=== PATIENT | female | born 1980 | race Two or more races ===

== ENCOUNTER 2024-03-28 10:47 | Inpatient (IN) | payer SELFPAY ==
[~2024-03-28] VITALS: Ht 165.1 cm; Wt 93.0 kg
[2024-03-28 11:49] LABS: Urine Bacteria FEW /hpf (None Seen); Urine Blood 3+ /uL (Negative); Urine Clarity Turbid (Clear); Urine Mucus FEW (None Seen); Urine Protein, UAD TRACE (Negative); Urine Specific Gravity 1.015 (1.001-1.035); Urine Urobilinogen Normal (Negative); Urine WBC 9 /hpf (0 - 5); Urine pH 5.5 (5.0-9.0)
[2024-03-28 11:50] LABS: Urine Color Yellow (Yellow)
[2024-03-28 12:08] LABS: Alanine Aminotransferase 17 U/L (7-40); Alkaline Phosphatase 93 U/L (46-116); Anion Gap 7 (5-15); Aspartate Aminotransferase 16 U/L (13-40); Calcium 9.7 mg/dL (8.7-10.4); Carbon Dioxide 22 mmol/L (20-30); Chloride 106 mmol/L (98-107); Glucose 94 mg/dL (74-106); Lipase 36 U/L (12-53); Potassium 3.9 mmol/L (3.5-5.1); Sodium 135 mmol/L (136-145)
[2024-03-28 12:09] LABS: Albumin 4.4 g/dL (3.2-4.8); Bilirubin, Total 1.3 mg/dL (0.2-1.0); Total Protein 7.9 g/dL (5.7-8.2)
[2024-03-28 12:11] LABS: Basophils # (auto) 0 10 ^3/uL (0-0.2); Basophils % (auto) 0.2 % (0.0-2.0); Eosinophils # (auto) 0.1 10 ^3/uL (0-0.8); Eosinophils % (auto) 0.6 % (0.0-7.0); Hematocrit 40.7 % (36.0-46.0); Hemoglobin 13.4 g/dL (12.2-16.2); Lymphocytes # (auto) 1.9 10 ^3/uL (0.4-5.4); Lymphocytes % (auto) 10.8 % (10.0-50.0); Mean Corpuscular Hemoglobin 29.8 pg (28.0-32.0); Mean Corpuscular Volume 90.5 fL (80.0-100.0); Monocytes # (auto) 1.6 10 ^3/uL (0-1.3); Monocytes % (auto) 8.6 % (0.0-12.0); Neutrophils # (auto) 14.5 10 ^3/uL (1.6-8.6); Neutrophils % (auto) 79.8 % (37.0-80.0); Red Cell Distribution Width 12.6 % (11.8-14.3); White Blood Cell 18.1 10^3/uL (4.4-10.8)
[2024-03-28 12:26] LABS: BUN/Creatinine Ratio 8.9 (10.0-20.0); Blood Urea Nitrogen < 5 mg/dL (9-23)
[2024-03-28] MEDS: PIPERACILLIN-TAZOB 3.375GM 100 ML IV ONE (13:05)
[2024-03-28] MEDS: metroNIDAZOLE 500MG/100ML 100 ML IV ONE (13:05)
[2024-03-28] MEDS: SODIUM CHLORIDE 0.9% 1,000 ML IV ONE ×2 (13:06→15:31)
[2024-03-28 13:50] VITALS: PULSE 84; RESP 23; O2SAT 100
[2024-03-28] MEDS: MORPHINE SULFATE 4 MG/ML SYR/VIAL IV ONE (13:51)
[2024-03-28] MEDS: ONDANSETRON HCL 4 MG/2 ML VIAL IV ONE (13:51)
[2024-03-28 14:44] LABS: INR 1.08 (0.9-1.15); Prothrombin Time 11.4 sec (9.3-11.8)
[2024-03-28 15:02] LABS: Lactic Acid w/Reflex 2.2 mmol/L (0.4-2.0)
[2024-03-28] MEDS ORDERED: ACETAMINOPHEN 500 MG TAB PO PRN (15:30)
[2024-03-28] MEDS ORDERED: LIDOCAINE 1% HCL (LOCAL ANESTH.) INJ 20ML MDV ONE (17:12)
[2024-03-28] MEDS ORDERED: ROCURONIUM 10MG/ML 10ML VIAL IV ONE (17:26)
[2024-03-28] MEDS ORDERED: SUCCINYLCHOLINE CHLORIDE 20 MG/ML 10ML VIAL IV ONE (17:26)
[2024-03-28] MEDS ORDERED: LIDOCAINE 1% INJ PF 5ML AMP ONE (17:28)
[2024-03-28] MEDS ORDERED: ONDANSETRON HCL 4 MG/2 ML VIAL ONE (17:28)
[2024-03-28] MEDS ORDERED: PROPOFOL 10 MG/ML 20 ML IV ONE (17:28)
[2024-03-28] MEDS ORDERED: MIDAZOLAM HCL 2MG/2ML 2ml VIAL (1mg/ml) ONE (17:28)
[2024-03-28] MEDS ORDERED: SODIUM CHLORIDE LOCK 10 ML ONE (17:28)
[2024-03-28] MEDS ORDERED: NEOSTIGMINE 1 MG/ML INJ (10mg/10ML VIAL) ONE (17:28)
[2024-03-28] MEDS ORDERED: fentaNYL CITRATE 100 MCG/2 ML VL ONE ×2 (17:28→19:55)
[2024-03-28] MEDS ORDERED: KETAMINE 50mg/ML 1ml syringe ONE (17:28)
[2024-03-28] MEDS ORDERED: MEPERIDINE HCL (50 MG/ML) 1 ML VIAL ONE ×2 (17:28→19:17)
[2024-03-28] MEDS ORDERED: LIDOCAINE HCL 2% TOP JELLY 5ML TOP ONE (17:28)
[2024-03-28] MEDS ORDERED: GLYCOPYRROLATE 0.2 MG/ML 1ML VIAL ONE (17:28)
[2024-03-28] MEDS ORDERED: METOCLOPRAMIDE HCL 5MG/ml INJ 2ml VIAL IV ONE (17:45)
[2024-03-28] MEDS ORDERED: HYDROmorphone HCL 2 MG/ML VL/or syr IV PRN (17:45)
[2024-03-28 18:20] VITALS: PULSE 86; RESP 20; O2SAT 99
[2024-03-28] MEDS ORDERED: ceFAZolin 2 GM/D5W50ml 50 ML IV ONE (18:33)
[2024-03-28] MEDS ORDERED: ceFAZolin 1GM VL ONE (19:53)
[2024-03-28 20:00] VITALS: BP 116/57; PULSE 70; RESP 18; TEMP 98.7; O2SAT 96
[2024-03-28 20:28] VITALS: PULSE 75; RESP 14; O2SAT 100
[2024-03-28 20:45] VITALS: PULSE 68; RESP 21; O2SAT 98
[2024-03-28] MEDS: KETOROLAC TROMETH 30 MG/ML 1ML VIAL IV ONE (20:47)
[2024-03-28] MEDS ORDERED: HYDROmorphone HCL 2 MG/ML VL/or syr ONE (20:48)
[2024-03-28] MEDS: HYDROmorphone HCL 2 MG/ML VL/or syr IV PRN (20:50)
[2024-03-28] MEDS: MORPHINE SULFATE INJ 2 MG/ml SYRG IV PRN (21:08)
[2024-03-28] MEDS: SODIUM CHLORIDE 0.9% 1,000 ML IV SCH (21:30)
[2024-03-28] MEDS: cefTRIAXone 1GM/50ML D5W 50 ML IV SCH (21:30)
[2024-03-28 21:36] VITALS: BP 116/57; PULSE 70; RESP 18; TEMP 98.7; O2SAT 96
[2024-03-28] MEDS: metroNIDAZOLE 500MG/100ML 100 ML IV SCH (22:00)
[2024-03-29 01:00] VITALS: BP 106/56; PULSE 71; RESP 16; TEMP 98.2; O2SAT 98
[2024-03-29] MEDS: MORPHINE SULFATE INJ 2 MG/ml SYRG IV PRN (04:39)
[2024-03-29 04:46] VITALS: BP 120/65; PULSE 74; RESP 18; TEMP 98.8; O2SAT 98
[2024-03-29] MEDS: ONDANSETRON HCL 4 MG/2 ML VIAL IV PRN (06:09)
[2024-03-29 08:34] VITALS: BP 123/64; PULSE 78; RESP 16; TEMP 99.2; O2SAT 98
[2024-03-29] MEDS: PANTOPRAZOLE 40 MG/10 ML VIAL INJ IV SCH (09:25)
[2024-03-29] MEDS: MORPHINE SULFATE INJ 2 MG/ml SYRG IV ONE (09:27)
[2024-03-29 09:55] LABS: Basophils # (auto) 0 10 ^3/uL (0-0.2); Basophils % (auto) 0.1 % (0.0-2.0); Eosinophils # (auto) 0 10 ^3/uL (0-0.8); Hematocrit 36.5 % (36.0-46.0); Hemoglobin 11.9 g/dL (12.2-16.2); Lymphocytes # (auto) 0.5 10 ^3/uL (0.4-5.4); Lymphocytes % (auto) 3.8 % (10.0-50.0); Mean Corpuscular Hemoglobin 29.5 pg (28.0-32.0); Mean Corpuscular Hgb Conc. 32.7 g/dL (32.0-36.0); Mean Corpuscular Volume 90.2 fL (80.0-100.0); Monocytes # (auto) 1.1 10 ^3/uL (0-1.3); Monocytes % (auto) 8.2 % (0.0-12.0); Neutrophils # (auto) 11.4 10 ^3/uL (1.6-8.6); Neutrophils % (auto) 87.9 % (37.0-80.0); Nucleated Red Blood Cells % 0.1 %; Red Blood Cells 4.05 10^6/uL (4.0-5.20); Red Cell Distribution Width 12.6 % (11.8-14.3)
[2024-03-29 09:58] LABS: Anion Gap 8 (5-15); Carbon Dioxide 20 mmol/L (20-30); Chloride 111 mmol/L (98-107); Potassium 3.7 mmol/L (3.5-5.1); Sodium 139 mmol/L (136-145)
[2024-03-29 09:59] LABS: Calcium 8.4 mg/dL (8.5-10.1)
[2024-03-29 10:03] LABS: Glucose 135 mg/dL (74-106)
[2024-03-29 10:04] LABS: BUN/Creatinine Ratio 9.4 (10.0-20.0); Blood Urea Nitrogen 5 mg/dL (9-23)
[2024-03-29 12:45] VITALS: BP 120/71; PULSE 82; RESP 18; TEMP 98.9; O2SAT 99
[2024-03-29] MEDS: D5W/ SOD CHL 0.9%/KCL 20MEQ 1,000 ML IV SCH (16:24)
[2024-03-29 16:49] VITALS: BP 120/58; PULSE 75; RESP 18; TEMP 99.1; O2SAT 99
[2024-03-29 21:00] VITALS: BP 125/53; PULSE 85; RESP 17; TEMP 99.6; O2SAT 95
[2024-03-30 01:00] VITALS: BP 121/58; PULSE 62; RESP 16; TEMP 98.8; O2SAT 99
[2024-03-30 04:52] VITALS: BP 122/62; PULSE 79; RESP 18; TEMP 98.8; O2SAT 100
[2024-03-30 05:33] LABS: Basophils # (auto) 0 10 ^3/uL (0-0.2); Basophils % (auto) 0.4 % (0.0-2.0); Eosinophils # (auto) 0.1 10 ^3/uL (0-0.8); Eosinophils % (auto) 0.9 % (0.0-7.0); Hematocrit 33.4 % (36.0-46.0); Hemoglobin 11.1 g/dL (12.2-16.2); Lymphocytes # (auto) 1.1 10 ^3/uL (0.4-5.4); Lymphocytes % (auto) 11.7 % (10.0-50.0); Mean Corpuscular Hgb Conc. 33.3 g/dL (32.0-36.0); Mean Corpuscular Volume 90.2 fL (80.0-100.0); Monocytes # (auto) 1.3 10 ^3/uL (0-1.3); Monocytes % (auto) 13.3 % (0.0-12.0); Neutrophils # (auto) 7.1 10 ^3/uL (1.6-8.6); Neutrophils % (auto) 73.7 % (37.0-80.0); Red Cell Distribution Width 12.5 % (11.8-14.3); White Blood Cell 9.6 10^3/uL (4.4-10.8)
[2024-03-30 05:47] LABS: Chloride 112 mmol/L (98-107); Potassium 3.6 mmol/L (3.5-5.1); Sodium 141 mmol/L (136-145)
[2024-03-30 05:48] LABS: Anion Gap 6 (5-15); Carbon Dioxide 23 mmol/L (20-30)
[2024-03-30 05:49] LABS: Calcium 8.5 mg/dL (8.5-10.1)
[2024-03-30 05:53] LABS: Glucose 130 mg/dL (74-106)
[2024-03-30 05:54] LABS: BUN/Creatinine Ratio 9.8 (10.0-20.0); Blood Urea Nitrogen 5 mg/dL (9-23)
[2024-03-30 08:39] VITALS: BP 114/79; PULSE 77; RESP 18; TEMP 99.4; O2SAT 97
[2024-03-30 13:00] VITALS: BP 135/70; PULSE 78; RESP 18; TEMP 99.4; O2SAT 96
[2024-03-30 16:32] VITALS: BP 131/80; PULSE 80; RESP 18; TEMP 98.9; O2SAT 97
[2024-03-30 21:00] VITALS: BP 125/66; PULSE 77; RESP 18; TEMP 98.2; O2SAT 97
[2024-03-31 00:57] VITALS: BP 123/59; PULSE 78; RESP 18; TEMP 99; O2SAT 95
[2024-03-31 05:00] VITALS: BP 128/74; PULSE 83; RESP 18; TEMP 97.9; O2SAT 96
[2024-03-31 08:35] VITALS: BP 139/87; PULSE 70; RESP 18; TEMP 98.6; O2SAT 96
[2024-03-31 13:00] VITALS: BP 132/76; PULSE 79; RESP 18; TEMP 99.3; O2SAT 96
[2024-03-31] MEDS ORDERED: NAP500T PO (13:40)
[2024-03-31] MEDS ORDERED: CEPH250C PO (13:40)
[2024-03-31] MEDS ORDERED: DOCU-94 PO (13:40)
[2024-03-31 17:00] VITALS: BP 142/63; PULSE 62; RESP 18; TEMP 99; O2SAT 98
[2024-03-31] MEDS: LACTULOSE 20Gm/30ML SOLN PO PRN (19:08)
[2024-03-31 21:00] VITALS: BP 122/78; PULSE 81; RESP 18; TEMP 99.4; O2SAT 97
[2024-04-01 01:00] VITALS: BP 129/83; PULSE 60; RESP 17; TEMP 98.1; O2SAT 99
[2024-04-01 05:00] VITALS: BP 99/76; PULSE 63; RESP 18; TEMP 97.9; O2SAT 95
[2024-04-01 09:00] VITALS: BP 133/70; PULSE 61; RESP 17; TEMP 98; O2SAT 98
[2024-04-01 09:43] LABS: Hepatitis B Surface Antigen Negative (Negative)
[2024-04-01 10:04] LABS: Hepatitis C Antibody Negative (Negative)
[2024-04-01 13:00] VITALS: BP 121/60; PULSE 67; RESP 16; TEMP 98; O2SAT 97
== END 2024-04-01 17:53 | disposition home or self-care (01) | DRG 853 ==
LOC: ER 10:47 → OVERFLOW 15:27 → CENTRAL 17:41 → EAST 04-01 11:17 → CENTRAL 04-01 12:28
PROVIDERS: ADMIT Nurse Practitioner Acute Care; ATTEND Nurse Practitioner Acute Care
PROC: 0W9G3ZZ Drainage of Peritoneal Cavity, Percutaneous Approach (ICD-10-PCS; 2024-03-28)
PROC: 0DTJ0ZZ Resection of Appendix, Open Approach (ICD-10-PCS; principal; 2024-03-28 18:39)
DX: A41.9 Sepsis, unspecified organism (principal); K35.33 Acute appendicitis with perforation, localized peritonitis, and gangrene, with abscess; E66.9 Obesity, unspecified; K66.0 Peritoneal adhesions (postprocedural) (postinfection); N73.6 Female pelvic peritoneal adhesions (postinfective); Z83.3 Family history of diabetes mellitus; Z68.34 Body mass index [BMI] 34.0-34.9, adult
CPT/HCPCS: 36415; 71045; 74176; 80048; 80053; 81001; 83605; 83690; 84702; 85025; 85610; 86803; 86850; 86900; 86901; 87340; 96365; 96367; 96375; 97163; C9113; G0378; J0330; J0690; J1885; J2001; J2250; J2405; J2543; J2704; J3490